=== PATIENT | female | born 1970 | race Caucasian/White ===

== ENCOUNTER 2020-02-15 22:51 | Emergency (ER) | payer OTHER, SELFPAY ==
[2020-02-15 22:52] VITALS: BP 158/97; PULSE 111; RESP 22; TEMP 36.1; O2SAT 100; BMI 29.8
--- NOTE | 2020-02-15 23:06 | ED.VIS.GEN ---
History of Present Illness Chief Complaint: Shortness of Breath Informant: Patient Narrative: Presents with cough for the last 4 days. Is a dry cough. It is intermittent. She stated she had a low-grade temperature just above 100 on Friday. She took Tylenol for that. She is unsure if her temperature came back. Her last Tylenol was 5 hours ago. She has not been taking her temperature since. Patient has asthma and using her inhaler inhaler frequently. He did get a flu shot. No history of pneumonia. Recent travel to [place] last week. No contact with rhinovirus patients. No chills. Current severity is mild. No chronic lung disease non-smoker. Past Medical History - Allergies and Home Meds Allergies/Adverse Reactions: Allergies No Known Allergies Allergy (Verified 02/15/20 22:55) Primary Care Physician: Alexandria Grissom [Primary Care Provider] - Prior records reviewed: Yes Past Medical History: - - Hypertension, asthma Surgical History: - - Lives: With Family Smoking Status: Never smoker Alcohol: None Drugs: None Review of Systems General: Reports: Fever. Denies: Chills, Sweats Eyes: Denies: Visual changes - bilaterally, Diplopia ENT: Denies: Rhinorrhea, Sore throat Cardiovascular: Denies: Chest pain, Palpitations Respiratory: Reports: Dyspnea, Cough. Denies: Dyspnea on exertion Gastrointestinal: Denies: Abdominal pain, Nausea, Vomiting, Diarrhea, Melena, Hematochezia Genitourinary: Denies: Dysuria, Hematuria, Frequency Musculoskeletal: Denies: Back pain, Extremity Pain Skin: Denies: Rash, Wounds Neurological: Denies: Headache, Weakness, Numbness Physical Exam Vital Signs/Narrative: Vital Signs Temp Pulse Resp BP Pulse Ox 02/15/20 22:52 96.9 F L 111 H 22 H 158/97 H 100 General: Well nourished, Well developed, No Acute Distress Head: Normocephalic, Atraumatic Eyes: Perrl, EOMI ENT: Moist mucous membranes, No rhinorrhea Neck: Supple, Nontender Cardiovascular: Regular rhythm, No murmurs, Tachycardia. Negative for: Regular rate Respiratory: No distress, CTA bilaterally, Chest nontender Abdomen: Soft, Nontender, Nondistended, Normal bowel sounds Back: Nontender, Normal Inspection Extremities: Nontender, No edema Skin: Normal color, No rash Neurological: Alert, Oriented x3, Cranial nerves II-XII grossly intact, Normal Strength, Normal Sensation Psychological: Normal affect, Normal Mood Diagnostic/Tx/Re-eval - Medical Decision Making Patient appears well. She does not appear short of breath or in distress. Lungs are clear. Influenza and chest x-ray obtained. X-ray normal. Influenza positive for influenza A. Patient does not want Tamiflu. I do not feel it will help her as she is 4 days and. Nonetheless I offered it to her because of her asthma and she declined. She will follow-up as an outpatient. She is nontoxic. She will treat her influenza at home. I do not feel she has concomitant coronavirus ED Disposition - Plan for ED Patient: Disposition: Home or Assisted Living Diagnosis: Influenza A Instructions: INFLUENZA (Adult) Referrals: Alexandria Grissom [Primary Care Provider] -
[2020-02-15] MEDS: Ipratropium/Albuterol Sulfate 3 ML AMPUL.NEB INHALATION (23:20)
[2020-02-15 23:21] VITALS: PULSE 95; RESP 12
--- NOTE | 2020-02-15 23:40 | RAD_ITS ---
STUDY: X-RAY CHEST REASON FOR EXAM: Female, 49 years old. C/O INCREASED SOB SINCE FRIDAY, C/O DRY COUGH, FEVER 100 TECHNIQUE: PA and lateral views of the chest. COMPARISON: None. FINDINGS: There are superimposed monitor leads. There are areas of hyperinflation. There is no focal parenchymal abnormality. There is no demonstrated pleural abnormality. Normal size heart. Normal mediastinum and devaughn. Normal visualized pulmonary arteries. Normal visualized aortic arch and descending thoracic aorta. There are diffuse degenerative changes of the visualized thoracic spine. Normal visualized ribs, clavicles, and shoulders. There is no demonstrated abnormality of the visualized soft tissue structures of the upper abdomen. RAD/Chest PA and Lateral IMPRESSION: Component of hyperinflation. No pulmonary edema, congestive heart failure or confluent pneumonia. Electronically Signed: Khadra Saals MD at 23:58 EDT , Service support ,
[2020-02-16 00:04] VITALS: BP 130/73; PULSE 99; RESP 12; O2SAT 96
[2020-02-16 00:18] VITALS: BP 130/73; PULSE 89; RESP 13; O2SAT 94
== END 2020-02-16 00:18 | disposition home or self-care (01) ==
PROVIDERS: Emergency Provider Emergency Medicine; PCP Family Medicine
DX: J11.1 Influenza due to unidentified influenza virus with other respiratory manifestations (principal); I10 Essential (primary) hypertension; J45.909 Unspecified asthma, uncomplicated
CPT/HCPCS: 71046; 87804; 94640; 99282

== ENCOUNTER → 2021-10-19 14:53 | Outpatient (CLI) | payer BC, SELFPAY ==
--- NOTE | 2021-10-19 14:56 | BI_ITS ---
MAMMOGRAPHY - BILATERAL SCREENING 3-D TOMOSYNTHESIS REASON FOR EXAM: Female, 50 years old. SCREENING PERTINENT HISTORY: Mother with breast cancer.. TECHNIQUE: 2-D mammograms and 3-D Tomosynthesis of the breast (s) were performed. CAD was performed. COMPARISON: 11/07/2016 FINDINGS: The breast composition is composed of scattered fibroglandular density. Scattered benign calcifications are seen. No dense spiculated masses or suspicious microcalcifications are identified. No architectural distortion is identified. There is no skin thickening or retraction. There has been no significant change since the prior study. BI/SCRN MAMM (CAD)W/SUDHAKAR BILAT IMPRESSION: No mammographic signs of malignancy. Routine yearly mammograms recommended. ASSESSMENT CATEGORY: BIRADS Category 2: Benign. A letter regarding these results will be sent to the patient by the facility within 30 days. FOLLOW UP RECOMMENDATION: Yearly follow up mammogram recommended. (A) Approximately 10% of breast cancers are not detected by mammography. A normal mammogram should not delay biopsy of a clinically suspicious abnormality. Electronically Signed: Sebastien Piña MD at 16:13 EST , Service support ,
== END ==
PROVIDERS: PCP Family Medicine
DX: Z12.31 Encounter for screening mammogram for malignant neoplasm of breast (principal)
CPT/HCPCS: 77063; 77067

== ENCOUNTER 2023-02-10 08:22 | Day surgery (SDC) | payer BC, SELFPAY ==
[2023-02-10] MEDS: Lactated Ringers 1,000 ML 15 ML IV (08:46)
[2023-02-10 08:47] VITALS: BP 141/80; PULSE 83; RESP 18; TEMP 36.8; O2SAT 100; BMI 31.6
--- NOTE | 2023-02-10 09:04 | PCM.HP.STD ---
[facility] - General General Date of Admission: 02/10/23 Date of Service: 02/10/23 Chief Complaint: Screening colonoscopy HPI Narrative RADHA MCCOY, is a 52 F who presents today for screening colonoscopy. She has a family history of colon cancer in her grandmother. She has never had a colonoscopy. She denies abdominal pain, nausea, vomiting. She denies any chest pain or shortness of breath. She denies any weakness. Overall she is in very good health. [facility] Medical History (Updated 02/04/23 @ 11:39 by Fabiola Crenshaw) Alcohol use Asthma Dietary restriction Eczema History of echocardiogram HTN (hypertension) Injury of head and neck Non-smoker Wears contact lenses Wears glasses Home Medications albuterol sulfate 90 mcg/actuation aerosol inhaler 1 - 2 puff inhalation Q4H PRN PRN Sob &/Or Wheezing 02/15/20 [History Last Taken Unknown] aspirin 81 mg chewable tablet 81 mg PO DAILY@0800 02/15/20 [History Last Taken Unknown] lisinopril 10 mg-hydrochlorothiazide 12.5 mg tablet 1 ea PO DAILY 02/15/20 [History Last Taken 02/10/23] fexofenadine 180 mg tablet (Raisa Allergy) 180 mg PO DAILY 12/05/22 [History Last Taken Unknown] multivitamin 1 tab PO DAILY 02/04/23 [History Last Taken Unknown] Allergy/AdvReac Type Severity Reaction Status Date / Time montelukast [From Singulair] AdvReac Apathetic Verified 02/10/23 08:45 Family History (Updated 12/05/22 @ 08:50 by Oma Lopez) Grandmother Colon cancer Father Hypertension CVA (cerebral vascular accident) Lung cancer Mother Breast cancer Surgical History (Updated 12/05/22 @ 08:48 by Oma Lopez) History of History of microdiscectomy History of varicose vein ligation Social History (Updated 12/05/22 @ 08:51 by Oma Lopez) household members: spouse current occupational status: employed Smoking Status: Never smoker ROS Review of Systems ROS Unobtainable: other Constitutional Constitutional: Denies fatigue, fever(s), poor appetite, weight gain or weight loss ENT HEENT: Denies mouth lesions Cardiovascular Cardiovascular: Denies abdominal bloating, abdominal edema or abdominal pain Respiratory/Chest Respiratory/Chest: Denies change in mental status, change in phlegm color, chest congestion or chest tightness Gastrointestinal Gastrointestinal: Denies belching, bloating, change in bowel habits, change in stool character, chewing difficulty, coffee ground emesis, constipation, cramping, diarrhea, dyspepsia, dysphagia, early satiety, excessive flatus, fecal incontinence, heartburn, hematemesis, hematochezia, hemorrhoids, loose stools, melena, nausea, odynophagia, rectal bleeding, tenesmus, vomiting or weight changes Genitourinary Genitourinary: Denies abdominal discomfort, burning urination or itching Musculoskeletal Musculoskeletal: Reports as per HPI; Denies muscle weakness or myalgias Integumentary Integumentary: Denies jaundice Neurologic Neurologic: Denies lack of coordination or weakness Psychiatric Psychiatric: Denies confusion, depression, memory loss, mood swings, paranoia or suicidal ideation Endocrine Endocrinology: Denies systems reviewed and no addt'l complaints, except as documented Hematologic/Lymphatic Hematologic/Lymphatic: Denies anemia, easy bleeding, easy bruising or lymphadenopathy Allergic/Immunologic Allergic/Immunologic: Denies systems reviewed and no addt'l complaints, except as documented Vital Signs Vital Signs Vital Signs: 02/10/23 08:47 02/10/23 08:47 Temperature 98.3 F Temperature Source Temporal Pulse Rate 83 Respiratory Rate 18 Respiratory Pattern Normal Blood Pressure 141/80 H Blood Pressure Mean 100 Blood Pressure Source Monitor Blood Pressure Position Semi-Fowlers Blood Pressure Location Right Arm Pulse Ox 100 Oxygen Delivery Method Room Air Weight Weight: 214 lb Body Mass Index (BMI) 31.6 Physical Exam Const alert General Appearance: cooperative Orientation / Consciousness: oriented to person HEENT hearing grossly normal bilaterally Head and Scalp: normal to inspection Face and Sinus: face symmetric Nose: external nose normal Mouth: oral and palatal mucosa normal Eyes conjunctivae normal General Eye: normal appearance of both eyes Neck full ROM General: normal visual inspection Lymph Lymphatic: no lymphadenopathy noted Chest inspection of chest normal and palpation of chest normal Chest: symmetrical chest wall rise Resp normal respiratory effort Effort and Inspection: able to speak in complete sentences Cardio regular rate GI non-distended Percussion: normal to percussion Rectal Exam: deferred Neuro Speech: speech normal Gait (Neuro): normal gait Assessment & Plan Assessment/Plan (1) Encounter for screening for malignant neoplasm of colon: PLAN: She will undergo screening colonoscopy. She was explained alternatives, risk, benefits include not withstanding bleeding, infection, sepsis, perforation, need for urgent or . She will have an ASA 1.
--- NOTE | 2023-02-10 09:30 | COLBX_PTH ---
PATIENT: RADHA MCCOY LOC: EN U#:[id number] AGE/SX: 52/F ROOM: RE02/10/[address]: Dr. Brodie Hightower DO : 1970 BED: DIS: 02/10/2023 SPEC #: [id number] RECD: 02/10/23 10:30 STATUS: LU TARAN #: [id number] GILMER: 02/10/23 09:[address]: Brodie Hightower DEPT: SURGICAL PATHOLOGY RECD BY: Arabella Pardo ENTERED: 02/10/23 11:49 SP TYPE: COLON BX OT DR: Dr. Alexandria Grissom MD Tissues: A - COLON BIOPSY B - Rectum, NOS Procedures: Surgery Specimen Level IV HEADER OPERATION: Colonoscopy ? open access (MAC), polypectomy, biopsy PRE-OP DIAGNOSIS: Screening TISSUE SUBMITTED: A ? Hepatic flexure polyp biopsy, B ? polyp rectum MICROSCOPIC DIAGNOSIS A. Hepatic flexure polyp, biopsy: Tubular adenoma. B. Polyp rectum, polypectomy: Tubular adenoma. LEONEL:yeimi 02/11/2023 MICROSCOPIC DESCRIPTION Slides are reviewed. GROSS DESCRIPTION A - Received in fixative is one container labeled with the patient's name and designated biopsy hepatic flexure polyp. The specimen consists of one irregular fragment of light wisdom soft tissue that measures 0.2 x 0.1 x 0.1 cm. The specimen is totally submitted in one cassette. B - Received in fixative is one container labeled with the patient's name and designated rectal polyp. The specimen consists of a wisdom-pink polyp measuring 0.5 x 0.5 x 0.3 cm. The specimen is totally submitted in one cassette. / LEONEL:yeimi 02/10/2023 TC:1 CPT: 10319 x2
[2023-02-10 10:20] VITALS: BP 102/56; BP 141/80; PULSE 64; RESP 16; TEMP 36.7; O2SAT 98
[2023-02-10 10:25] VITALS: BP 118/71; BP 141/80; PULSE 59; RESP 16; O2SAT 98
--- NOTE | 2023-02-10 10:25 | OP.CCLET_ITS ---
02/10/2023 Alexandria Grissom Re : Colonoscopy procedure for Ramila Higgins Dear Praveena This procedure was performed on Friday, February 10, 2023. My impressions and recommendations are as follows: Impressions : - One 5 mm polyp in the rectum, removed with a hot snare. Resected and retrieved. - Diverticulosis in the recto-sigmoid colon, in the sigmoid colon and in the descending colon. - One 5 mm polyp in the rectum, removed with a hot snare. Resected and retrieved. Recommendations : - Repeat colonoscopy in 5 years for surveillance. - Continue present medications. My findings are described in the full procedure note, which is enclosed. If I can be of further assistance, please feel free to contact me at . Sincerely, Brodie Hightower, 02/10/2023 10:25:20 AM This report has been signed electronically.
--- NOTE | 2023-02-10 10:25 | OP.COLON_ITS ---
Patient Name: Ramila Higgins Procedure Date: 02/10/2023 9:54 AM Date of : 1970 Age: 52 Procedure: Colonoscopy Indications: Screening for colorectal malignant neoplasm Providers: Brodie Hightower DO Referring MD: Alexandria Grissom Medicines: Monitored Anesthesia Care Patient Profile: This is a 52 year old female. Refer to note in patient chart for documentation of history and physical. Last Colonoscopy: none. The patient's first colonoscopy is today. Complications: No immediate complications. Procedure: Pre-Anesthesia Assessment: - Prior to the procedure, a History and Physical was performed, and patient medications and allergies were reviewed. The patient is competent. The risks and benefits of the procedure and the sedation options and risks were discussed with the patient. All questions were answered and informed consent was obtained. Patient identification and proposed procedure were verified by the physician in the pre-procedure area. Mental Status Examination: alert and oriented. Airway Examination: normal oropharyngeal airway and neck mobility. Respiratory Examination: clear to auscultation. CV Examination: normal. Prophylactic Antibiotics: The patient does not require prophylactic antibiotics. Prior Anticoagulants: The patient has taken no previous anticoagulant or antiplatelet agents. ASA Grade Assessment: II - A patient with mild systemic disease. After reviewing the risks and benefits, the patient was deemed in satisfactory condition to undergo the procedure. The anesthesia plan was to use monitored anesthesia care (MAC). Immediately prior to administration of medications, the patient was re-assessed for adequacy to receive sedatives. The heart rate, respiratory rate, oxygen saturations, blood pressure, adequacy of pulmonary ventilation, and response to care were monitored throughout the procedure. The physical status of the patient was re-assessed after the procedure. After I obtained informed consent, the scope was passed under direct vision. Throughout the procedure, the patient's blood pressure, pulse, and oxygen saturations were monitored continuously. The Colonoscope was introduced through the anus and advanced to the cecum, identified by appendiceal orifice and ileocecal valve. The colonoscopy was performed without difficulty. The patient tolerated the procedure well. The quality of the bowel preparation was good. Scope In: 10:05:28 AM Scope Withdrawal Time 0 hours 7 minutes 37 seconds Scope Out: 10:16:01 AM Total Procedure Duration Time 0 hours 10 minutes 33 seconds Findings: The perianal and digital rectal examinations were normal. A 5 mm polyp was found in the rectum. The polyp was sessile. The polyp was removed with a hot snare. Resection and retrieval were complete. Verification of patient identification for the specimen was done. Estimated blood loss was minimal. Multiple small-mouthed diverticula were found in the recto-sigmoid colon, sigmoid colon and descending colon. A 5 mm polyp was found in the rectum. The polyp was sessile. The polyp was removed with a hot snare. Resection and retrieval were complete. Verification of patient identification for the specimen was done. Estimated blood loss was minimal. Non-bleeding internal hemorrhoids were found during retroflexion. The hemorrhoids were mild and Grade I (internal hemorrhoids that do not prolapse). A 3 mm polyp was found in the hepatic flexure. The polyp was sessile. The polyp was removed with a jumbo cold forceps. Resection and retrieval were complete. Verification of patient identification for the specimen was done. Estimated blood loss was minimal. Impression: - One 5 mm polyp in the rectum, removed with a hot snare. Resected and retrieved. - Diverticulosis in the recto-sigmoid colon, in the sigmoid colon and in the descending colon. - One 5 mm polyp in the rectum, removed with a hot snare. Resected and retrieved. Recommendation: - Repeat colonoscopy in 5 years for surveillance. - Continue present medications. Procedure Code(s): --- Professional --- 97303, Colonoscopy, flexible; with removal of tumor(s), polyp(s), or other lesion(s) by snare technique 37086, 59, Colonoscopy, flexible; with biopsy, single or multiple CPT copyright 2017 [employer]. All rights reserved. The codes documented in this report are preliminary and upon senior asic design engineer review may be revised to meet current compliance requirements. Brodie Hightower DO 02/10/2023 10:25:20 AM This report has been signed electronically. Number of Addenda: 0 Note Initiated On: 02/10/2023 9:54 AM
[2023-02-10 10:30] VITALS: BP 116/77; BP 141/80; PULSE 57; RESP 16; O2SAT 98
[2023-02-10 10:35] VITALS: BP 122/77; BP 141/80; PULSE 60; RESP 16; TEMP 36.9; O2SAT 99
[2023-02-10 11:01] VITALS: BP 141/80
== END 2023-02-10 11:12 | disposition home or self-care (01) ==
LOC: EN 08:29 → AC 08:30
PROVIDERS: PCP Family Medicine; Referring Provider Family Medicine; Visit Provider Internal Medicine Gastroenterology
PROC: 0DJD8ZZ Inspection of Lower Intestinal Tract, Via Natural or Artificial Opening Endoscopic (ICD-10-PCS; CPT 45378; principal; 2023-02-10 09:25)
DX: Z12.11 Encounter for screening for malignant neoplasm of colon (principal); D12.8 Benign neoplasm of rectum; D12.3 Benign neoplasm of transverse colon; K57.30 Diverticulosis of large intestine without perforation or abscess without bleeding; K64.0 First degree hemorrhoids; I10 Essential (primary) hypertension; Z79.82 Long term (current) use of aspirin; Z79.899 Other long term (current) drug therapy; Z80.0 Family history of malignant neoplasm of digestive organs
CPT/HCPCS: 45385; 45380; 88305; J7120; J2405